=== PATIENT | male | born 1985 | race Caucasian/White ===

== ENCOUNTER 2022-01-11 11:43 | Emergency (ER) | payer BC ==
[2022-01-11 11:48] VITALS: BP 133/86; PULSE 107; RESP 18; TEMP 98
--- NOTE | 2022-01-11 12:07 | ED ---
General Adult HPI - General Chief complaint: Extremity Injury, Upper Stated complaint: hurt L thumb Time Seen by Provider: 01/11/22 11:57 Source: patient, RN notes reviewed, old records reviewed Mode of arrival: ambulatory Limitations: no limitations - History of Present Illness Initial comments: 36-year-old male presenting with left hand and thumb injury. Patient was tubing yesterday. He had his hand caught in 2 and is uncertain exactly what injury occurred but has developed significant pain in the left thumb with range of motion. No additional injury, no elbow or shoulder injury. Patient states this occurred yesterday. - Related Data Allergies Allergy/AdvReac Type Severity Reaction Status Date / Time shellfish derived Allergy Unknown Verified 01/11/22 11:48 Review of Systems ROS Statement: Those systems with pertinent positive or pertinent negative responses have been documented in the HPI. ROS Other: All systems not noted in ROS Statement are negative. Past Medical History Past Medical History: No Reported History History of Any Multi-Drug Resistant Organisms: None Reported Past Surgical History: No Surgical Hx Reported Past Psychological History: No Psychological Hx Reported Smoking Status: Heavy tobacco smoker Past Alcohol Use History: Occasional Past Drug Use History: None Reported General Exam Limitations: no limitations General appearance: alert, in no apparent distress Head exam: Present: atraumatic, normocephalic Eye exam: Present: normal appearance, PERRL ENT exam: Present: normal exam Neck exam: Present: normal inspection. Absent: tenderness, meningismus Respiratory exam: Present: normal lung sounds bilaterally. Absent: respiratory distress, wheezes Cardiovascular Exam: Present: regular rate, normal rhythm GI/Abdominal exam: Present: soft. Absent: distended, tenderness Extremities exam: Present: other (Soft tissue swelling at the base of the left thumb. Pain in the snuffbox. Decreased range of motion. Normal cap refill, distal pulses intact.) Neurological exam: Present: alert, oriented X3, CN II-XII intact. Absent: motor sensory deficit Course Vital Signs 01/11/22 11:45 Temperature 98 F Pulse Rate 107 H Respiratory 18 Rate Blood Pressure 133/86 O2 Sat by Pulse 98 Oximetry Procedures - Orthopedic Splinting/Casting Injury #1 Side: left Upper Extremity Injury Location: hand Upper Extremity Immobilizer: thumb spica Medical Decision Making - Medical Decision Making 36-year-old male with left thumb injury, pain in the snuffbox. X-ray negative f or fracture. Patient placed in a thumb spica, given orthopedic follow-up. Suspect from sprain versus nondisplaced scaphoid fracture. Disposition Clinical Impression: Left thumb sprain Disposition: HOME SELF-CARE Condition: Good Instructions (If sedation given, give patient instructions): Hand Sprain (ED) Is patient prescribed a controlled substance at d/c from ED?: No Referrals: None,Stated [Primary Care Provider] - 1-2 days Yefri Brady MD [STAFF PHYSICIAN] - 1-2 days Time of Disposition: 12:29
--- NOTE | 2022-01-11 12:22 | XR ---
EXAMINATION TYPE: XR hand complete LT DATE OF EXAM: 01/11/2022 12:06 PM INDICATION: Patient age:Male; 36 years old; Reason for study: trauma; [facility]. COMPARISON: None TECHNIQUE: Frontal, lateral and oblique views of the left hand were obtained. FINDINGS: Normal alignment of the visualized joints. No acute osseous pathology is identified. No e vidence of soft tissue swelling. IMPRESSION: No acute osseous pathology.
== END 2022-01-11 12:51 | disposition home or self-care (01) ==
LOC: EC 11:43
DX: S60.932A Unspecified superficial injury of left thumb, initial encounter (principal); Z91.013 Allergy to seafood; W26.8XXA Contact with other sharp object(s), not elsewhere classified, initial encounter; F17.209 Nicotine dependence, unspecified, with unspecified nicotine-induced disorders
CPT/HCPCS: 29125; 99283